=== PATIENT | female | born 1970 | race Caucasian/White ===

== ENCOUNTER 2018-09-09 07:57 | Outpatient (CLI) | payer OTHER | END 2018-09-09 07:58 | disposition home or self-care (01) | LOC: BICMAMMO 07:57 | PROVIDERS: ATTEND Obstetrics & Gynecology | DX: Z12.31 Encounter for screening mammogram for malignant neoplasm of breast (principal) | CPT/HCPCS: 77063; 77067 ==

== ENCOUNTER 2018-09-20 13:10 | Outpatient (CLI) | payer OTHER ==
--- NOTE | 2018-09-20 16:13 | ULT ---
RIGHT BREAST ULTRASOUND LIMITED: History: There is a circumscribed mass seen on mammography at the 1:30 o'clock position of the right breast wi th a fatty component within it. FINDINGS: On ultrasound at 1:30 o'clock 4 cm from the nipple there is a circumscribed mass measuring 0.4 x 0.6 x 0.6 cm consistent with an area of fat necrosis and corresponding to the mammographic area of concer n. IMPRESSION: Evidence for fat necrosis corresponding to the area of mammographic concern. BIRADS category 2. Benign Findings POS: OFF
--- NOTE | 2018-09-20 16:52 | ULT ---
LEFT BREAST LIMITED ULTRASOUND: 09/20/18 HISTORY: An asymmetric density was noted in the left breast on diagnostic mammogram. This asymmetric density o n the mammogram appeared more prominent in the CC projection but appeared to be several asymmetric de nsities as seen on the MLO and mediolateral views. In the 12 o'clock position there is a small, appro ximately 0.3 x 0.6 x 0.9 cm slightly complex appearing cyst. I feel that this cyst may well account f or some of the density that is being perceived on the mammogram. There is no evidence for solid mass or shadowing or other evidence for malignancy by ultrasound. The mammogram appearance on today's y is slightly different than from the 2013 study but the patient has put on more weight since that which probably accounts for this difference. Because of this small complex cyst in the asymmetri c density, I would recommend a short term interval surveillance for further evaluation. IMPRESSION: BIRADS 3: Probably Benign Finding Initial Short-Interval Follow-Up Suggested Initial short-term follow up (usually 6-month) examination Followup left unilateral diagnostic mammogram and left breast ultrasound in six months is recommended for further assessment. These findings were discussed with the patient who was in agreement to proceeding to the short term i nterval surveillance. POS: OFF
== END 2018-09-20 13:11 | disposition home or self-care (01) ==
LOC: BICMAMMO 13:10
PROVIDERS: ATTEND Obstetrics & Gynecology
DX: R92.2 Inconclusive mammogram (principal); N63.10 Unspecified lump in the right breast, unspecified quadrant; N64.89 Other specified disorders of breast; N64.1 Fat necrosis of breast
CPT/HCPCS: 77066; G0279